=== PATIENT | female | born 1975 | race Two or more races ===

== ENCOUNTER 2021-03-05 15:17 | Outpatient (CLI) | payer OTHER, SELFPAY ==
[2021-03-05 16:22] LABS: Anion Gap 5 mmol/L (8-16); Blood Urea Nitrogen 12 mg/dL (7-17); Calcium 8.8 mg/dL (8.4-10.2); Carbon Dioxide 29 mmol/L (22-30); Chloride 105 mmol/L (98-107); Estimated Glomerular Filt Rate > 60; Glucose 97 mg/dL (65-105); Potassium 3.9 mmol/L (3.4-5.0); Sodium 139 mmol/L (137-145)
== END 2021-03-05 15:18 | disposition home or self-care (01) ==
PROVIDERS: Visit Provider Anesthesiology
DX: Z51.81 Encounter for therapeutic drug level monitoring (principal); Z79.899 Other long term (current) drug therapy; D64.9 Anemia, unspecified
CPT/HCPCS: 36415; 80048

== ENCOUNTER 2021-03-05 15:37 | Outpatient (CLI) | payer OTHER, SELFPAY ==
[2021-03-05 16:12] LABS: Basophils Percent Auto 0.4 % (0.2-1.2); Eosinophils Absolute Auto 0.1 K/mm3 (0-0.3); Hemoglobin 7.7 g/dL (12.0-15.0); Immature Granulocyte Absolute 0.04 K/mm3 (0.00-0.031); Immature Granulocyte Percent A 0.6 % (0-0.5); Lymphocytes Absolute Auto 1.17 K/mm3 (0.9-3.2); Lymphocytes Percent Auto 17.1 % (18.3-44.2); Mean Corpuscular HGB Conc 27.5 g/dl (32-36); Mean Corpuscular Hemoglobin 23.8 pg (26-34); Mean Corpuscular Volume 86.4 fl (80-100); Mean Platelet Volume 9.8 fl (7.4-10.4); Monocytes Absolute Auto 0.4 K/mm3 (0.1-0.6); Monocytes Percent Auto 5.7 % (2.6-8.5); Neutrophils Absolute Auto 5.2 K/mm3 (1.3-6.7); Neutrophils Percent Auto 75.2 % (45.5-73.1); Platelet Count Result 325 k/mm3 (150-375); Red Blood Count 3.24 M/mm3 (4.2-5.4); Red Cell Distribution Width 22.3 % (11.5-14.5); White Blood Count 6.9 K/mm3 (4.5-10.0)
== END 2021-03-05 15:38 | disposition home or self-care (01) ==
PROVIDERS: PCP Family Medicine; Visit Provider Family Medicine
DX: D64.9 Anemia, unspecified (principal)
CPT/HCPCS: 36415; 85025

== ENCOUNTER 2021-03-09 00:51 | Day surgery (SDC) | payer OTHER, SELFPAY ==
[2021-02-20 13:57] VITALS: BMI 38.5
--- NOTE | 2021-03-09 12:37 | PM.HPGS ---
History of Present Illness History of Present Illness Consent: Risks, benefits, and alternatives have been discussed and questions answered. Patient agrees to proceed with procedure. Chief complaint: abnormal uterine bleeding Narrative: Cristel Hickman is a 45 year old female is a with heavy bleeding in 2018 patient underwent a biopsy with normal endometrium. Patient placed on progesterone therapy. Patient reports worked for a while now bleeding is still heavy. hemoglobin was a 7.3 in ER with heavy clots. Review of Systems Constitutional: Constitutional: Reports fatigue, Reports headache(s) and Reports lethargy PMFSH Past Medical History Medical History (Updated 03/09/21 @ 12:43 by Rober Michel MD) Abnormal uterine bleeding (AUB) Anemia Migraines Surgical History Surgical History S/P hernia repair S/P tubal ligation Social History Social History Smoking status: Never smoker Alcohol use details: 1 DRINK/MONTH Substance use: never Living arrangements: with family Additional living arrangements comments: [facility] Spiritual care concerns: No Meds Home Medications and Allergies Home Medications Medication Instructions Recorded Confirmed Type cyanocobalamin (vitamin B-12) 1,000 mcg SUBCUT DIRECTED 02/20/21 02/20/21 History cyclobenzaprine 10 mg PO BID PRN 02/20/21 02/20/21 History ferrous sulfate 325 mg PO BID 02/20/21 02/20/21 History gabapentin 300 mg PO TID PRN 02/20/21 02/20/21 History hydrochlorothiazide 12.5 mg PO QAM 02/20/21 02/20/21 History phentermine 37.5 mg PO DAILY 02/20/21 02/20/21 History progesterone micronized 100 mg PO DAILY 02/20/21 02/20/21 History topiramate [Topamax] 25 mg PO HS 02/20/21 02/20/21 History Allergies Allergy/AdvReac Type Severity Reaction Status Date / Time No Known Allergies Allergy Verified 02/20/21 13:48 Exam Const: Nutritional Appearance: obese Cardio: Rate: regular rate Rhythm: regular rhythm : Speculum Exam - Vagina: normal appearance of the vagina Speculum Exam - Cervix: normal appearance of the cervix Bimanual exam- vagina & uterus: boggy and enlarged Assessment and Plan Assessment and plan (1) Abnormal uterine bleeding (AUB): Code(s): N93.9 - Abnormal uterine and vaginal bleeding, unspecified Status: Acute Assessment and Plan: scheduled for a hysteroscopy with dilation and curettage. Risk and benefits reviewed with patient.
--- NOTE | 2021-03-09 12:46 | WPDHPUPDATE1 ---
History and Physical Update Update Date/Time: 03/09/21 12:46 History and Physical has been reviewed, including an updated exam of the patient. There are NO changes in the patient's condition. Risks, benefits, and alternatives have been discussed and questions answered. Patient agrees to proceed with procedure.
[2021-03-09 13:00] VITALS: BP 144/73; PULSE 82; RESP 18; TEMP 36.9; O2SAT 100
--- NOTE | 2021-03-09 13:09 | WPDANESEPP ---
Anes - Eval Pre Procedure Procedure: Operation Date: 03/09/21 14:15 Proposed Procedures p Hysteroscopy Dilation and Curettage - Rober Michel MD Date/Time: 03/09/21 13:09 Pre Op Diagnosis: abnormal uterine bleeding Patient Data Age: 45 Gender: F Height: 1.69 m Weight: 155.7 kg Last Vital Signs Temp 36.9 C 03/09/21 13:00 Pulse 82 03/09/21 13:00 Resp 18 03/09/21 13:00 BP 144/73 H 03/09/21 13:00 Pulse Ox 100 03/09/21 13:00 Allergies Allergy/AdvReac Type Severity Reaction Status Date / Time No Known Allergies Allergy Verified 03/09/21 12:46 Home Medications Medication Instructions Recorded Confirmed Type cyanocobalamin (vitamin B-12) 1,000 mcg SUBCUT DIRECTED 02/20/21 03/09/21 History cyclobenzaprine 10 mg PO BID PRN 02/20/21 03/09/21 History ferrous sulfate 325 mg PO BID 02/20/21 03/09/21 History gabapentin 300 mg PO TID PRN 02/20/21 03/09/21 History hydrochlorothiazide 12.5 mg PO QAM 02/20/21 03/09/21 History phentermine 37.5 mg PO DAILY 02/20/21 03/09/21 History progesterone micronized 100 mg PO DAILY 02/20/21 03/09/21 History topiramate [Topamax] 25 mg PO HS 02/20/21 03/09/21 History Patient hx anesthesia problems: none Family hx anesthesia problems: none PMFSH Past Medical History Medical History Abnormal uterine bleeding (AUB) Anemia Migraines Surgical History Surgical History S/P hernia repair S/P tubal ligation Social History Social History Smoking status: Never smoker Alcohol use details: 1 DRINK/MONTH Substance use: never Living arrangements: with family Additional living arrangements comments: [facility] Spiritual care concerns: No Exam Day of Procedure 03/09/21 13:09 Patient weight: super morbidly obese
--- NOTE | 2021-03-09 13:16 | WPDANESEFPP ---
Anes - Eval Final PreProcedure Day of Procedure 03/09/21 13:16 Patient weight: super morbidly obese Heart: regular rate and rhythm Lungs: clear to auscultation Airway: Mallampati scale class II Neurological: alert and oriented Last oral intake: >/= 8 hours ASA classification: IV Emergent: no Anesthetic plan: proceed Anesthesia type and monitoring: general GIVS and standard monitoring Informed Consent: The patient's anesthetic plan and its attendant risks and benefits were discussed with the patient/family/POA. Questions were solicited and answers provided to the satisfaction of the patient/family/POA.
[2021-03-09] MEDS: LACTATED RINGERS 1,000 ML 30 ML IV CONT (13:24)
[2021-03-09] MEDS: ACETAMINOPHEN 500 MG TABLET 1000 MG PO (13:25)
[2021-03-09 13:27] LABS: Hematocrit 27.4 % (37.0-47.0); Hemoglobin 7.9 g/dL (12.0-15.0)
[2021-03-09 14:34] VITALS: BP 115/77; PULSE 77; O2SAT 100
--- NOTE | 2021-03-09 14:34 | W.PM.PROC2 ---
Procedure Note - Detailed Date of Procedure 03/09/21 Pre-op Diagnosis abnormal uterine bleeding Post-op Diagnosis same Procedure Performed Hysteroscopy with dilation and curettage Surgeon Rober Michel MD Anesthesia MAC and local Indications heavy and abnormal uterine bleeding Findings large uterine cavity Description of Procedure the patient was taken to the operating room with IV running and prepped draped in normal sterile fashion and placed in a lithotomy position. A bivalve speculum was placed into the vagina anterior lip of the cervix was grasped with a single-tooth tenaculum. The uterus was sounded to 10cm. The cervix was then serially dilated with Hegar dilators to an 8. Prior to dilating the cervix the cervix was injected with a 1% lidocaine at the 2 and 10 o'clock position with 5cc bilaterally. Hysteroscope was introduced into the uterine cavity and noted copious endometrial tissue able to visualize 1 ostia. Hysteroscope was removed and a sharp curettage was performed in all 4 quadrants of the uterus. the tenaculum was hemostasis was assured. The speculum was removed the patient was taken recovery room stable condition Estimated Blood Loss 10 Drains No Packing No Pathology yes Complications None Condition stable Disposition PACU
[2021-03-09] MEDS: KETOROLAC 30 MG/ML VIAL (*BKC) IV PUSH (14:49)
[2021-03-09 15:00] VITALS: BP 126/64; PULSE 65
[2021-03-09 15:20] VITALS: BP 122/58; PULSE 75
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
== END 2021-03-09 15:35 | disposition home or self-care (01) ==
PROVIDERS: PCP Family Medicine; Visit Provider Obstetrics & Gynecology
PROC: 0U5B8ZZ Destruction of Endometrium, Via Natural or Artificial Opening Endoscopic (ICD-10-PCS; CPT 58563; principal; 2021-03-09 14:15)
DX: N93.9 Abnormal uterine and vaginal bleeding, unspecified (principal); D64.9 Anemia, unspecified; E66.01 Morbid (severe) obesity due to excess calories; Z68.43 Body mass index [BMI] 50.0-59.9, adult
CPT/HCPCS: 58558; 36415; 80048; 85014; 85018; 85025; 86850; 86900; 86901; 88305; A9270; J1885; J2250; J2405; J2704; J7030; J7120